=== PATIENT | female | born 2005 | race Caucasian/White ===

== ENCOUNTER 2024-01-11 05:41 | Emergency (ER) | payer BC ==
[2024-01-11] MEDS: Ondansetron 4 MG/2 ML SDV IVPUSH PRN (06:05)
[2024-01-11] MEDS: Sodium Chloride 0.9% 1,000 ML IV ONE (06:09)
[2024-01-11 06:38] LABS: APPEARANCE,URINE CLEAR (CLEAR); BILIRUBIN,URINE NEGATIVE (NEGATIVE); COLOR,URINE YELLOW (YELLOW); GLUCOSE,URINE NEGATIVE (NEGATIVE); KETONES,URINE 15 mg/dL (NEGATIVE); LEUKOCYTE ESTERASE,URINE NEGATIVE (NEGATIVE); NITRITE,URINE NEGATIVE (NEGATIVE); OCCULT BLOOD,URINE NEGATIVE (NEGATIVE); PH,URINE 7.5 (4.5-8.0); PROTEIN,URINE 30 mg/dL (NEGATIVE); UROBILINOGEN,URINE 0.2 EU/dL (0.2-1.0)
[2024-01-11 06:38] LABS: BASOPHILS ABSOLUTE AUTO 0.02 10^3/uL (0.00-0.50); BASOPHILS PERCENT AUTO 0.1 % (0-1); HEMATOCRIT 39.5 % (37.0-47.0); HEMOGLOBIN 12.3 g/dL (12.0-16.0); IMMATURE GRAN ABSOLUTE AUTO 0.04 10^3/uL (0.00-0.49); IMMATURE GRAN PERCENT AUTO 0.3 % (0.0-4.9); LYMPHOCYTES ABSOLUTE AUTO 0.24 10^3/uL (0.60-5.00); LYMPHOCYTES PERCENT AUTO 1.8 % (24-44); MEAN CORPUSCULAR HEMOGLOBIN 26.6 pg (27.0-32.0); MEAN CORPUSCULAR HGB CONC 31.1 g/dL (32.0-36.0); MEAN CORPUSCULAR VOLUME 85.5 fL (83.0-97.0); MONOCYTES ABSOLUTE AUTO 0.55 10^3/uL (0.00-1.50); MONOCYTES PERCENT AUTO 4.1 % (0-10); NEUTROPHILS ABSOLUTE AUTO 12.56 x10^3/uL (1.80-8.00); NEUTROPHILS PERCENT AUTO 93.7 % (41-71); PLATELET COUNT,PLT 294 10^3/uL (150-400); RED BLOOD CELL COUNT 4.62 x10^6/uL (4.00-5.50); WHITE BLOOD CELL COUNT,WBC 13.4 10^3/uL (4.0-11.0)
[2024-01-11 06:51] LABS: RBC,URINE 0-5 /HPF (0-5)
[2024-01-11 06:52] LABS: BACTERIA,URINE NOT SEEN /HPF (NOT SEEN); EPITHELIAL CELLS,URINE FEW /HPF (NOT SEEN); WBC,URINE NOT SEEN /HPF (0-5)
[2024-01-11 07:00] LABS: ALBUMIN 3.7 g/dL (3.4-5.0); BILIRUBIN TOTAL 0.5 mg/dL (0.0-1.0); C-REACTIVE PROTEIN 2.06 mg/dL (<=0.50); CALCIUM 8.2 mg/dL (8.4-10.1); CREATININE 0.7 mg/dL (0.6-1.0); EST CRCL DRUG DOSING (CG) 116.32 mL/min; POTASSIUM,K 3.7 mEq/L (3.5-5.0); PROTEIN TOTAL,TP 7.3 g/dL (6.4-8.2)
== END 2024-01-11 07:25 | disposition home or self-care (01) ==
LOC: CC.ED 05:41
DX: R11.2 Nausea with vomiting, unspecified (principal); Z79.899 Other long term (current) drug therapy; E66.9 Obesity, unspecified; Z68.42 Body mass index [BMI] 45.0-49.9, adult
CPT/HCPCS: 36415; 80053; 81001; 85025; 86140; 96361; 96374; 99283; 99284-25; J2405; J7030